=== PATIENT | male | born 1985 | race Caucasian/White ===

== ENCOUNTER 2020-05-25 01:44 | Emergency (ER) | payer MEDICAID, OTHER ==
[~2020-05-25] VITALS: Ht 175.3 cm; Wt 68.0 kg
[2020-05-25] MEDS ORDERED: EPINEPHRINE (1:1000) 1 MG/ML AMPUL ONE (02:05)
[2020-05-25] MEDS ORDERED: predniSONE 20 MG TABLET ONE (02:06)
[2020-05-25] MEDS ORDERED: FAMOTIDINE (20 MG) 20 MG TABLET ONE (02:06)
[2020-05-25] MEDS: FAMOTIDINE (20 MG) 20 MG TABLET PO ONE (02:14)
[2020-05-25] MEDS: EPINEPHRINE (1:1000) MDV 30 MG/30ML VIAL SUBCUT ONE (02:14)
[2020-05-25] MEDS: predniSONE 10 MG TABLET PO ONE (02:14)
[2020-05-25 02:38] VITALS: BP 111/67
== END 2020-05-25 03:14 | disposition home or self-care (01) ==
LOC: ER 01:47
DX: L50.8 Other urticaria (principal)
CPT/HCPCS: 96372; 99283; J0171 ×2; J7512

== ENCOUNTER 2020-05-27 12:06 | Emergency (ER) | payer MEDICAID ==
[~2020-05-27] VITALS: Ht 175.3 cm; Wt 68.0 kg
[2020-05-27 12:15] VITALS: BP 109/71
--- NOTE | 2020-05-27 12:30 | NUR ---
HIVES WORST TO FACIAL AREA. SEEN 2 DAYS AGO FOR SAME COMPLAIN. DENIES SOB OR THROAT DISCOMFORT. PATIENT A/OX4, BREATHING EVEN AND UNLABORED, NO SOB NOTED, NEEDS ATTENDED, KEPT COMFORTABLE.
[2020-05-27] MEDS ORDERED: FAMOTIDINE/PF INJ 20 MG/2 ML VIAL IV ONE ×2 (13:00→13:01)
[2020-05-27] MEDS ORDERED: diphenhydrAMINE HCL 50 MG/ML VIAL IV ONE (13:00)
[2020-05-27] MEDS ORDERED: methylPREDNISolone SOD SUCC 125 MG/2ML VIAL IV ONE (13:00)
[2020-05-27] MEDS ORDERED: IV NS 0.9% 1,000 ML BAG IV ONE (13:00)
[2020-05-27] MEDS ORDERED: diphenhydrAMINE HCL 50 MG/ML VIAL ONE (13:01)
[2020-05-27] MEDS ORDERED: methylPREDNISolone SOD SUCC 125 MG/2ML VIAL ONE (13:01)
--- NOTE | 2020-05-27 13:40 | NUR ---
IV removed. Catheter intact and site benign. Pressure and 4x4 applied to site. No bleeding noted.Patient discharged to home in stable condition. Written and verbal after care instructions given. Patient verbalizes understanding of instruction.
== END 2020-05-27 13:57 | disposition home or self-care (01) ==
LOC: ER 12:09
DX: L50.0 Allergic urticaria (principal); R00.0 Tachycardia, unspecified
CPT/HCPCS: 96374; 96375; 99284; J1200; J2930; J3490

== ENCOUNTER 2021-05-13 21:33 | Emergency (ER) | payer MEDICAID ==
[~2021-05-13] VITALS: Ht 175.3 cm; Wt 81.6 kg
[2021-05-13] MEDS ORDERED: diphenhydrAMINE HCL 50 MG/ML VIAL IM ONE (22:30)
--- NOTE | 2021-05-13 22:35 | NUR ---
JR (EMPLOYEE AT [employer]) CAN BE CONTACTED FOR PICKUP
[2021-05-13] MEDS ORDERED: diphenhydrAMINE HCL 50 MG/ML VIAL ONE (22:43)
[2021-05-13 22:48] VITALS: BP 124/64
== END 2021-05-13 23:09 | disposition home or self-care (01) ==
LOC: ER 21:34
DX: L50.8 Other urticaria (principal); F17.200 Nicotine dependence, unspecified, uncomplicated; Z60.2 Problems related to living alone
CPT/HCPCS: 96372; 99283; J1200